=== PATIENT | female | born 1965 | race Caucasian/White ===

== ENCOUNTER → 2023-09-29 | Day surgery (SDC) | payer BC ==
[2023-09-26 15:49] LABS: BASOPHILS # (AUTO) 0.1 X10'3 (0-0.2); BASOPHILS % (AUTO) 1.2 % (0-1); EOSINOPHILS # (AUTO) 0.3 X10'3 (0-0.9); EOSINOPHILS % (AUTO) 6.2 % (0-6); LYMPHOCYTES # (AUTO) 1.5 X10'3 (1.1-4.8); LYMPHOCYTES % (AUTO) 35.9 % (21-51); MEAN CORPUSCULAR HEMOGLOBIN 27.7 PG (27.0-31.0); MEAN CORPUSCULAR HGB CONC 32.8 g/dL (33.0-36.5); MEAN CORPUSCULAR VOLUME 84.4 FL (78-98); MEAN PLATELET VOLUME 7.3 FL (7.4-10.4); MONOCYTES # (AUTO) 0.4 X10'3 (0-0.9); MONOCYTES % (AUTO) 8.5 % (2-12); NEUTROPHILS % (AUTO) 48.2 % (42-75); PRE OP HEMATOCRIT 37.9 % (35.0-45.0); PRE OP HEMOGLOBIN 12.4 g/dL (12.0-16.0); PRE OP PLATELET COUNT 245 X10'3 (140-440); PRE OP WHITE BLOOD COUNT 4.1 10'3 (4.8-10.8); RED BLOOD COUNT 4.49 X10'6 (4.20-5.60); RED CELL DISTRIBUTION WIDTH 14.4 % (11.5-14.5)
[2023-09-26 16:07] LABS: ALBUMIN 3.5 G/DL (3.4-5.0); ALBUMIN/GLOBULIN RATIO 0.9 (1.1-1.5); ALKALINE PHOSPHATASE 55 IU/L (46-116); BLOOD UREA NITROGEN 20 MG/DL (7-18); CALCIUM 9.2 MG/DL (8.5-10.1); CHLORIDE 102 MMOL/L (99-107); CREATININE 0.74 MG/DL (0.40-0.90); PRE OP ALT 72 U/L (30-65); PRE OP ANION GAP 6 (8-16); PRE OP AST 28 U/L (10-37); PRE OP BILIRUB, TOTAL 0.4 MG/DL (0.0-1.0); PRE OP GLUCOSE 76 MG/DL (70-104); PRE OP POTASSIUM 3.8 MMOL/L (3.4-5.1); PRE OP SODIUM 138 MMOL/L (135-145); TOTAL PROTEIN 7.4 G/DL (6.4-8.2); eGFR 81 ML/MIN
[2023-09-29] VITALS (14 sets, daily range): BP systolic 118–163; BP diastolic 71–97; PULSE 60–84; RESP 11–18; TEMP 97.5–98.2; O2SAT 88–100
[~2023-09-29] VITALS: Ht 160 cm; Wt 97.5 kg
[~2023-09-29] MED LIST: ALBU8HFA INH; AZEL23SP BOTHNARES; BACL20TA PO; CIME200T12 PO; DICL100G59 TOP; DICL75TA5 PO; ESOM20CA38 PO; GABA300C PO; IPRA30SP BOTHNARES; IXEK80SY3 SUBCUT; LEVO5TAB29 PO; LIDOcaine 1% (10mg/ml)w/preservative inj. 20ml MDV ONE; LIDOcaine 1%/PF 5ML 10 MG/ML VIAL ONE; MONT-40 PO; [UNRECOGNIZED DRUG - CODE] PO; acetaminophen 1,000mg/100ml IV 100 ML IV ONE; enalaprilat dihydrate 2.5mg/2ml vial IV PRN; fentaNYL /PF 50mcg/ml 5ml ampule ONE; glycopyrrolate 0.2mg/ml inj ONE; labetalol 20mg/4ml (5mg/ml) syringe IV PRN; meperidine/PF 25mg/ml syringe IV PRN; midazolam 1 mg/ML 2ml injection ONE; morphine 2 MG/ML inj. syringe IV PRN; morphine 4 MG/ML inj SYRINge IV PRN; neostigmine methylsulfate 1 MG/ML 10ml vial ONE; ondansetron/PF 4mg/2ml inj IV PRN; ondansetron/PF 4mg/2ml inj ONE; oxyCODONE/APAP 5-325mg tablet PO PRN; proCHLORperazine 10 MG/2 ml inj IV PRN; propofol inj 20 ML IV ONE; ringers solution, lacted 1,000 ML IV SCH; rocuronium 10mg/ml inj IV ONE; sevoflurane 250ml liquid IH ONE; sugammadex 200mg/2ml injection IV ONE
[2023-09-29] MEDS: cefazolin 2gm/D5W 100mL 100 ML IV ONE (05:30)
[2023-09-29] MEDS: famotidine 20mg tablet PO ONE (09:35)
[2023-09-29] MEDS: ringers solution, lacted 1,000 ML IV SCH (09:36)
[2023-09-29] MEDS: BUPIVACAINE liposomal/PF 13.3 MG/ML vial IM ONE (10:48)
[2023-09-29] MEDS: LIDOcaine 1% 30ml preserv. free vial IJ ONE (10:49)
[2023-09-29] MEDS: BUPIVAcaine 2.5mg/ml inj 50ml vial (contains preservative) ONE (10:49)
[2023-09-29] MEDS: meperidine/PF 25mg/ml syringe IV PRN (12:13)
== END | disposition home or self-care (01) ==
LOC: PAS 09:09
PROVIDERS: ATTEND Surgery
DX: K43.6 Other and unspecified ventral hernia with obstruction, without gangrene (principal); K42.9 Umbilical hernia without obstruction or gangrene; E66.01 Morbid (severe) obesity due to excess calories; K21.9 Gastro-esophageal reflux disease without esophagitis; J44.9 Chronic obstructive pulmonary disease, unspecified; G62.9 Polyneuropathy, unspecified; I25.2 Old myocardial infarction; Z87.891 Personal history of nicotine dependence; Z79.899 Other long term (current) drug therapy; Z68.38 Body mass index [BMI] 38.0-38.9, adult; Z88.8 Allergy status to other drugs, medicaments and biological substances
CPT/HCPCS: 36415; 49594; 64488; 80053; 82948; 85025; 93005; C1781; C9290; J0131; J0690; J1100; J2175; J2250; J2405; J2704; J2710; J3010; J3490; J7030; J7120; Z7506; Z7508; Z7512; A4215; A4615; A4618

== ENCOUNTER 2023-10-07 05:40 | Emergency (ER) | payer BC ==
[~2023-10-07] VITALS: Ht 160 cm; Wt 97.7 kg
[~2023-10-07 05:40] MED LIST changes: -LIDOcaine 1% (10mg/ml)w/preservative inj. 20ml MDV ONE; -LIDOcaine 1%/PF 5ML 10 MG/ML VIAL ONE; -acetaminophen 1,000mg/100ml IV 100 ML IV ONE; -enalaprilat dihydrate 2.5mg/2ml vial IV PRN; -fentaNYL /PF 50mcg/ml 5ml ampule ONE; -glycopyrrolate 0.2mg/ml inj ONE; -labetalol 20mg/4ml (5mg/ml) syringe IV PRN; -meperidine/PF 25mg/ml syringe IV PRN; -midazolam 1 mg/ML 2ml injection ONE; -morphine 2 MG/ML inj. syringe IV PRN; -morphine 4 MG/ML inj SYRINge IV PRN; -neostigmine methylsulfate 1 MG/ML 10ml vial ONE; -ondansetron/PF 4mg/2ml inj IV PRN; -ondansetron/PF 4mg/2ml inj ONE; -oxyCODONE/APAP 5-325mg tablet PO PRN; -proCHLORperazine 10 MG/2 ml inj IV PRN; -propofol inj 20 ML IV ONE; -ringers solution, lacted 1,000 ML IV SCH; -rocuronium 10mg/ml inj IV ONE; -sevoflurane 250ml liquid IH ONE; -sugammadex 200mg/2ml injection IV ONE
[2023-10-07 06:00] VITALS: TEMP 96.5
[2023-10-07 07:10] VITALS: BP 125/93; PULSE 56; RESP 20; O2SAT 100
[2023-10-07] MEDS: ketorolac tromethamine 15mg/ml inj. IM ONE (07:34)
== END 2023-10-07 08:15 | disposition home or self-care (01) ==
LOC: ER 05:40
DX: T81.49XA Infection following a procedure, other surgical site, initial encounter (principal); B99.9 Unspecified infectious disease; Z91.018 Allergy to other foods; Z88.8 Allergy status to other drugs, medicaments and biological substances; Z79.899 Other long term (current) drug therapy; Z79.2 Long term (current) use of antibiotics
CPT/HCPCS: 74176; 96372; 99285; J1885

== ENCOUNTER 2024-01-19 12:28 | Outpatient (CLI) | payer BC ==
[~2024-01-19 12:28] MED LIST changes: -ESOM20CA38 PO; +ESOM20CA50 PO
== END 2024-01-19 23:59 | disposition home or self-care (01) ==
LOC: MRI02 12:28
PROVIDERS: ATTEND Physician Assistant Surgical
DX: S83.012A Lateral subluxation of left patella, initial encounter (principal); M25.562 Pain in left knee; J90 Pleural effusion, not elsewhere classified; X58.XXXA Exposure to other specified factors, initial encounter; Y93.89 Activity, other specified; Y92.89 Other specified places as the place of occurrence of the external cause; Y99.8 Other external cause status
CPT/HCPCS: 73721